=== PATIENT | male | born 1960 | race Caucasian/White ===

== ENCOUNTER → 2019-06-13 | Outpatient (CLI) | payer BC ==
[~2019-06-13] MED LIST: Percocet 5-3251 EACH PO; Silvadene20 GM TOP
== END | disposition home or self-care (01) ==
LOC: LAB SHORT 07:56 → PLD 07:56
DX: D22.39 Melanocytic nevi of other parts of face (principal)
CPT/HCPCS: 88305

== ENCOUNTER 2020-10-02 05:50 | Day surgery (SDC) | payer BC ==
[~2020-10-02] VITALS: Ht 167.6 cm; Wt 79.8 kg
[~2020-10-02 05:50] MED LIST changes: +ACET325 PO; +CYAN500; +GALZIN50 MG PO; +TOCO1000 PO; +VITAMIN D310 MC4 PO
--- NOTE | 2020-10-02 07:07 | NUR ---
Ambulatory in Day Surgery. Surgical site prepped with 2% Chlorhexidine cloth wipe. History, Chart, Medications and Allergies reviewed before start of procedure.Gonz[employer]lez Paws warming gown applied. Pre-Op teaching done. Pt verbalizes understanding. Patient confirms NPO status and agrees with scheduled surgery. Lungs clear T/O to Auscultation. Patient reports completing Chlorhexadine shower X2 prior to admission to hospital.
--- NOTE | 2020-10-02 09:41 | NUR ---
ARRIVED FROM PACU TO STEP VSS ADMISTS TO PAIN 2/10 GIVEN JUICE PER REWQUEST AND RX FOR PAIN
--- NOTE | 2020-10-02 10:36 | NUR ---
Discharge instructions reviewed with patient. Patient verbalizes understanding. Copy given to patient to take home. Patient States Post-Procedure ride home has been arranged. Discharged via wheelchair to private car for ride home.
== END 2020-10-02 22:47 | disposition home or self-care (01) ==
LOC: ORSCMMR 05:50
DX: K42.0 Umbilical hernia with obstruction, without gangrene (principal); M79.89 Other specified soft tissue disorders; I82.890 Acute embolism and thrombosis of other specified veins
CPT/HCPCS: 88305; A9270; C1781; J0690; J1100; J2250; J2405; J2704; J2710; J3010; J7120